=== PATIENT | female | born 1980 | race African-American/Black ===

== ENCOUNTER 2017-04-10 14:33 | Emergency (ER) | payer BC ==
[~2017-04-10] VITALS: Ht 167.6 cm; Wt 120.0 kg
[~2017-04-10 14:33] MED LIST: CETI10 PO; CIPR0.3S RIGHT EAR; DICL75 PO; FERR324T4 PO; GABA300C3 PO; JANU50TA5 PO; LEXA5TAB PO; LORC10TA24 PO; PROT40TA PO; TOPA15CA PO; TOPA25TA8 PO; VIST25CA PO
[2017-04-10] MEDS ORDERED: SODIUM CHLOR 0.9% 1000 ML INJ 1,000 ML IV ONE (14:56)
[2017-04-10 15:00] VITALS: BP 158/67; PULSE 97; RESP 16; TEMP 97.8; O2SAT 99
[2017-04-10] MEDS ORDERED: diphenhydrAMINE HCL 50 MG/ML VIAL IVP ONE (15:00)
[2017-04-10] MEDS ORDERED: PROCHLORPERAZINE INJ 10 MG/2 ML VIAL IVP ONE (15:00)
[2017-04-10 15:11] VITALS: RESP 16; O2SAT 98
[2017-04-10 15:32] LABS: AUTOMATED NEUTROPHIL # 4.1 TH/MM3 (1.8-7.7); BASOPHIL # 0.1 TH/MM3 (0-0.2); BASOPHIL % 0.8 % (0.0-2.0); EOSINOPHIL # 0.2 TH/MM3 (0-0.4); EOSINOPHIL % 2.1 % (0.0-4.0); HEMATOCRIT 32.7 % (35.0-46.0); HEMO FLAGS DIFF FINAL; LYMPH % 38.8 % (9.0-44.0); MEAN CELL VOLUME 68.5 FL (80.0-100.0); MEAN CORPUSCULAR HEMOGLOBIN 20.9 PG (27.0-34.0); MEAN CORPUSCULAR HGB CONC 30.5 % (32.0-36.0); MONO % 6.6 % (0.0-8.0); NEUT % 51.7 % (16.0-70.0); PLATELET COUNT 386 TH/MM3 (150-450); RED BLOOD COUNT 4.77 MIL/MM3 (4.00-5.30); RED CELL DISTRIBUTION WIDTH 18.7 % (11.6-17.2); WHITE BLOOD COUNT 7.8 TH/MM3 (4.0-11.0)
--- NOTE | 2017-04-10 15:32 | PD ---
HPI Chief Complaint: Headache Time Seen by Provider: 15:26 Travel History International Travel<30 days: No Contact w/Intl Traveler<30days: No Traveled to known affect area: No History of Present Illness HPI 37-year-old female that presents to the ED for evaluation of right-sided headache. Per patient she woke up with this headache. Per patient she has a history of headaches in the past but this feels different. Per patient is different in the sense that she usually has to on the left side and causes irritation to her eyes. Per patient she took Tylenol with minimal relief. Per patient she went to [facility] and the pain continues so someone in her [facility] called the ambulance. Per patient the headache now seems to be completely gone. Per patient she does feel somewhat nauseous here and she denies any head injury. She denies any blood thinners. She denies any narcotic use. She denies any history of hypertension or diabetes. She states that the headache currently is 1 out of 10 if anything. Per patient he was more severe 8 out of 10. Per patient she felt nauseous at the time. She has an allergy to Wellbutrin. She denies any chest pain or shortness of breath. No numbness, tingling, weakness. No back pain or neck pain. PFSH Past Medical History Diabetes: Yes Patient Takes Glucophage: No Diminished Hearing: No Fibromyalgia: Yes Migraines: Yes Tetanus Vaccination: Unknown Influenza Vaccination: No ?: Not LMP: MARCH 2016 Past Surgical History Section: Yes Social History Alcohol Use: No Tobacco Use: Yes (OCCASIONALLY) Substance Use: No Allergies-Medications (Allergen,Severity, Reaction): Coded Allergies: Wellbutrin (Verified Allergy, Severe, HIVES, 04/04/14) Reported Meds & Prescriptions Reported Meds & Active Scripts Active Vistaril (Hydroxyzine Pamoate) 25 Mg Cap 25 Mg PO Q8H PRN FOR ITCHING Janumet 50/500 (Sitagliptin Phosphate/Metformin HCl) 1 Tab Tab 1 Tab PO BID ADMINISTER WITH MEALS Topamax (Topiramate) 25 Mg Tab 25 Mg PO BID Belviq (Lorcaserin HCl) 10 Mg Tab 10 Mg PO BID Ferrous Sulfate 325 Mg Tab 325 Mg PO BID Protonix (Pantoprazole Sodium) 40 Mg Tab 40 Mg PO DAILY Ciprodex Otic Susp (Ciprofloxacin/Dexamethasone) 7.5 Ml Susp 4 Drop RIGHT EAR Q12 7 Days Diclofenac Sodium 75 Mg Tab 75 Mg PO DAILY PRN Cetirizine Hcl 10 Mg Tab 10 Mg PO DAILY PRN Reported Lexapro (Escitalopram Oxalate) 5 Mg Tab 0 PO DAILY UNKNOWN DOSE Gabapentin 300 Mg Cap 300 Mg PO TID Topamax (Topiramate) 15 Mg Cap 0 PO UNKNOWN DOSE Janumet 50/500 (Sitagliptin Phosphate/Metformin HCl) 1 Tab Tab 0 PO BID UNKNOWN DOSE Review of Systems Except as stated in HPI: all other systems reviewed are Neg Physical Exam Narrative GENERAL: SKIN: Warm and dry. HEAD: Atraumatic. Normocephalic. EYES: Pupils equal and round 4mms reactive to light and accomodation. No scleral icterus. No injection or drainage. ENT: No nasal bleeding or discharge. Mucous membranes pink and moist. Tongue is midline. No uvula deviation NECK: Trachea midline. No JVD. CARDIOVASCULAR: Regular rate and rhythm. RESPIRATORY: No accessory muscle use. Clear to auscultation. Breath sounds equal bilaterally. GASTROINTESTINAL: Abdomen soft, non-tender, nondistended. Hepatic and splenic margins not palpable. MUSCULOSKELETAL: Extremities without clubbing, cyanosis, or edema. No obvious deformities. Full ROM of the upper and lower extremities bilaterally. 2+ pulses bilaterally. Sensation intact. Strength is 5/5. NEUROLOGICAL: Awake and alert. No obvious cranial nerve deficits. Motor grossly within normal limits. Five out of 5 muscle strength in the arms and legs. Normal speech. PSYCHIATRIC: Appropriate mood and affect; insight and judgment normal. Data Data Last Documented VS Vital Signs Date Time Temp Pulse Resp B/P Pulse Ox O2 Delivery O2 Flow Rate FiO2 04/10/17 15:24 97 16 99 Room Air 04/10/17 15:00 97.8 158/67 Orders Complete Blood Count With Diff (04/10/17 14:56) Basic Metabolic Panel (Bmp) (04/10/17 14:56) Ct Brain W/O Iv Contrast(Rout) (04/10/17 14:56) Ecg Monitoring (04/10/17 14:56) Iv Access Insert/Monitor (04/10/17 14:56) Oximetry (04/10/17 14:56) Prochlorperazine Inj (Compazine Inj) (04/10/17 15:00) Diphenhydramine Inj (Benadryl Inj) (04/10/17 15:00) Sodium Chlor 0.9% 1000 Ml Inj (Ns 1000 M (04/10/17 14:56) Labs Laboratory Tests Test 04/10/17 15:00 White Blood Count 7.8 TH/MM3 Red Blood Count 4.77 MIL/MM3 Hemoglobin 10.0 GM/DL Hematocrit 32.7 % Mean Corpuscular Volume 68.5 FL Mean Corpuscular Hemoglobin 20.9 PG Mean Corpuscular Hemoglobin 30.5 % Concent Red Cell Distribution Width 18.7 % Platelet Count 386 TH/MM3 Mean Platelet Volume 7.7 FL Neutrophils (%) (Auto) 51.7 % Lymphocytes (%) (Auto) 38.8 % Monocytes (%) (Auto) 6.6 % Eosinophils (%) (Auto) 2.1 % Basophils (%) (Auto) 0.8 % Neutrophils # (Auto) 4.1 TH/MM3 Lymphocytes # (Auto) 3.0 TH/MM3 Monocytes # (Auto) 0.5 TH/MM3 Eosinophils # (Auto) 0.2 TH/MM3 Basophils # (Auto) 0.1 TH/MM3 CBC Comment DIFF FINAL Differential Comment Sodium Level 141 MEQ/L Potassium Level 3.5 MEQ/L Chloride Level 108 MEQ/L Carbon Dioxide Level 24.6 MEQ/L Anion Gap 8 MEQ/L Blood Urea Nitrogen 15 MG/DL Creatinine 0.85 MG/DL Estimat Glomerular Filtration 90 ML/MIN Rate Random Glucose 173 MG/DL Calcium Level 8.1 MG/DL MDM Medical Decision Making Medical Screen Exam Complete: Yes Emergency Medical Condition: Yes Medical Record Reviewed: Yes Interpretation(s) CBC & BMP Diagram 04/10/17 15:[address] 04/10/17 0026 Signed Impressions: Service Date/Time: Monday, April 10, 2017 15:17 - CONCLUSION: 1. No acute intracranial abnormality. David Griffith MD Differential Diagnosis Migraine headache vs tension headache vs cluster headache vs ICH vs electrolyte abnormality Narrative Course 37 yo female here for evaluation of headache via EVAC. patient was properly examined and found to have signs and symptoms consistent with headache. labs and imaging ordered. neurovascularly intact. CT done secondary to abnormal presentation of headache for patient. Given IV fluids and meds. Labs and imaging showed no sign of acute disease. Patient was reassured. This time this appears to be in atypical headache for her. She is neurovascularly intact. Feels better. I recommend close follow-up with PCP. See ED for any worsening symptoms. Take Motrin or Tylenol for pain. Diagnosis Primary Impression: Headache Qualified Code: G44.209 - Acute non intractable tension-type headache Patient Instructions: General Instructions Additional Instructions: Continue taking medications as prescribed by her doctor. Follow-up with her doctor this week. See ED worsening symptoms. He blood work and imaging here were essentially unremarkable. Med/Other Pt SpecificInfo: No Meds Exist/No RX given Disposition: 01 DISCHARGE HOME Condition: Stable Angel Santamaria Apr 10, 2017 15:32
[2017-04-10 15:42] LABS: BICARBONATE 24.6 MEQ/L (21.0-32.0); POTASSIUM 3.5 MEQ/L (3.5-5.1)
--- NOTE | 2017-04-10 16:08 | RADRPT ---
EXAM DATE/TIME: 04/10/2017 15:17 [facility] COMPARISON: No previous studies available for comparison. INDICATIONS : Dizziness, cephalgia and general weakness today. RADIATION DOSE: 49.82 CTDIvol (mGy) MEDICAL HISTORY : diabetes SURGICAL HISTORY : None. ENCOUNTER: Initial ACUITY: 1 day PAIN SCALE: 7/10 LOCATION: Bilateral head TECHNIQUE: Multiple contiguous axial images were obtained of the head. Using automated exposure control and adj ustment of the mA and/or kV according to patient size, radiation dose was kept as low as reasonably a chievable to obtain optimal diagnostic quality images. FINDINGS: CEREBRUM: The ventricles are normal for age. No evidence of midline shift, mass lesion, hemorrhage or acute in farction. No extra-axial fluid collections are seen. POSTERIOR FOSSA: The cerebellum and brainstem are intact. The 4th ventricle is midline. The cerebellopontine angle i s unremarkable. EXTRACRANIAL: The visualized portion of the orbits is intact. SKULL: The calvaria is intact. No evidence of skull fracture. CONCLUSION: 1. No acute intracranial abnormality. David Griffith MD on April 10, 2017 at 16:04 Board Certified Radiologist. This report was verified electronically.
== END 2017-04-10 18:06 | disposition home or self-care (01) ==
LOC: NEPD 14:33
DX: R51 Headache (principal); E11.9 Type 2 diabetes mellitus without complications; M79.7 Fibromyalgia; Z72.0 Tobacco use
CPT/HCPCS: 70450; 80048; 85025; 96361; 96374; 96375; 99285; J0780; J1200; J7030